=== PATIENT | male | born 1970 | race Hispanic/Latino ===

== ENCOUNTER 2016-08-06 00:26 | Emergency (ER) | payer SELFPAY ==
--- NOTE | 2016-08-06 01:30 | ED PDOC ---
HPI: Psych/Substance Abuse Time Seen by Provider: 08/06/16 01:17 Chief Complaint (Nursing): Substance Abuse Chief Complaint (Provider): substance abuse History Per: Patient History/Exam Limitations: no limitations Additional History Per: Patient Additional Complaint(s): 46 y/o male brought in by EMS for substance abuse. Patient awake, alert, oriented upon entering exam room, states he is feeling better. Patient admits to injecting a bag of heroin tonight and using cocaine. Narcan given in the field. Denies headache, dizziness, nausea/vomiting, chest pain, shortness of breath, palpitations, alcohol use. Patient denies suicidal/homicidal ideations. Past Medical History Reviewed: Historical Data, Nursing Documentation, Vital Signs Vital Signs: Last Vital Signs Temp 99.9 F H 08/06/16 00:29 Pulse 77 08/06/16 00:59 Resp 15 08/06/16 00:59 BP 122/77 08/06/16 00:59 Pulse Ox 95 08/06/16 00:59 - Medical History PMH: Hepatitis (C) - Family History Family History: States: Unknown Family Hx - Social History Current smoker - smoking cessation education provided: Yes Alcohol: None Drugs: Cocaine, Opiates - Allergies Allergies/Adverse Reactions: Allergies Allergy/AdvReac Type Severity Reaction Status Date / Time No Known Allergies Allergy Verified 08/06/16 00:41 Review of Systems ROS Statement: Except As Marked, All Systems Reviewed And Found Negative Physical Exam - Reviewed Nursing Documentation Reviewed: Yes Vital Signs Reviewed: Yes - Physical Exam Appears: Positive for: Well, Non-toxic, No Acute Distress Head Exam: Positive for: ATRAUMATIC, NORMAL INSPECTION, NORMOCEPHALIC Eye Exam: Positive for: EOMI. Negative for: PERRL (pinpoint) ENT: Positive for: Normal ENT Inspection Cardiovascular/Chest: Positive for: Regular Rate, Rhythm Respiratory: Positive for: Normal Breath Sounds Gastrointestinal/Abdominal: Positive for: Normal Exam Extremity: Positive for: Normal ROM Neurologic/Psych: Positive for: Alert, Oriented - ECG ECG: Positive for: Viewed By Me (reviewed by ED attending) ECG Rhythm: Positive for: Sinus Rhythm O2 Sat by Pulse Oximetry: 95 - Progress ED Course And Treament: ekg, accucheck 4:00 Patient awake, alert, oriented x3. Ambulating steady gait. Stable for discharge. Disposition - Clinical Impression Clinical Impression: Polysubstance abuse - Disposition Disposition: Routine/Home Disposition Time: 04:08 Condition: IMPROVED Instructions: Polysubstance Abuse (ED)
[2016-08-06 04:51] VITALS: BP 123/66; PULSE 81; RESP 16; TEMP 98.4; O2SAT 98
== END 2016-08-06 04:46 | disposition home or self-care (01) ==
LOC: H.ER 00:26
DX: F19.10 Other psychoactive substance abuse, uncomplicated (principal); F17.200 Nicotine dependence, unspecified, uncomplicated